=== PATIENT | male | born 1975 | race Caucasian/White ===

== ENCOUNTER 2022-12-25 14:05 | Outpatient (CLI) | payer BC, SELFPAY ==
--- NOTE | 2022-12-25 14:38 | XR_ITS ---
WS: [id number] XR lumbar spine 2-3V* [id number] REASON FOR EXAM: LUMBAR SPONDYLOLYSIS/POST OP CHECK FINDINGS: No comparison examination. Posterior decompression with pedicle screws L4-S1. Interbody fusion devices at L4-L5 and L5-S1. Lateral bony fusion masses L4-L5. The surgical appliances are intact and in proper position and alignment. No other significant finding. XR/XR lumbar spine 2-3V* [id number] IMPRESSION: Posterior fusion lumbar cervical spine as above.
== END 2022-12-25 14:06 | disposition home or self-care (01) ==
PROVIDERS: Visit Provider Neurological Surgery
DX: M47.816 Spondylosis without myelopathy or radiculopathy, lumbar region (principal); Z98.1 Arthrodesis status
CPT/HCPCS: 72100

== ENCOUNTER → 2023-01-11 11:21 | Outpatient (BNVA) | payer BC, SELFPAY | PROVIDERS: PCP Nurse Practitioner Family; Visit Provider Nurse Practitioner Family | DX: M51.16 Intervertebral disc disorders with radiculopathy, lumbar region (principal); R79.89 Other specified abnormal findings of blood chemistry; M54.9 Dorsalgia, unspecified; G89.29 Other chronic pain | CPT/HCPCS: 80053; 80061 ==

== ENCOUNTER 2023-04-03 09:16 | Outpatient (CLI) | payer BC, SELFPAY ==
--- NOTE | 2023-04-03 09:28 | XR_ITS ---
WS: [id number] Exam: XR lumbar spine 2-3V* [id number] Date/Time of Exam: 04/03/2023 9:28 AM Reason For Exam: Lumbar radiculopathy Comparison 12/25/2022. There is posterior fusion of the spine from L4-S1 with pedicle screws and posterior rods. Disc spacer s at L4-5 and L5-S1. The fusion remains in satisfactory alignment. Laminectomy at L4-5 and L5-S1. No sign of hardware failure. The remainder of the lumbar spine is unremarkable. IMPRESSION: 1. Stable fusion from L4-S1. No change or complication since previous exam.
== END 2023-04-03 09:17 | disposition home or self-care (01) ==
PROVIDERS: PCP Nurse Practitioner Family; Visit Provider Registered Nurse
DX: M54.16 Radiculopathy, lumbar region (principal); Z98.1 Arthrodesis status
CPT/HCPCS: 72100

== ENCOUNTER → 2023-09-27 13:36 | Outpatient (BNVA) | payer BC, SELFPAY | PROVIDERS: PCP Nurse Practitioner Family; Visit Provider Nurse Practitioner Family | DX: R79.89 Other specified abnormal findings of blood chemistry (principal); M51.16 Intervertebral disc disorders with radiculopathy, lumbar region; M54.9 Dorsalgia, unspecified; G89.29 Other chronic pain; Z12.11 Encounter for screening for malignant neoplasm of colon; Z12.2 Encounter for screening for malignant neoplasm of respiratory organs; F17.200 Nicotine dependence, unspecified, uncomplicated; H92.03 Otalgia, bilateral; Z12.5 Encounter for screening for malignant neoplasm of prostate | CPT/HCPCS: 80053; 80061; 84402; 84403; 85025; G0103 ==

== ENCOUNTER 2023-10-31 13:00 | Outpatient (CLI) | payer BC, SELFPAY ==
--- NOTE | 2023-10-31 13:00 | CT_ITS ---
WS: [id number] LDCT LUNG CANCER SCREENING TECHNIQUE: Noncontrast CT of the chest with coronal and sagittal reformatted images. CLINICAL INFORMATION: screening COMPARISON: None. DLP: 114.17 mGy.cm DIvol: Mean CTDIvol: 2.40 (mGy) All CT scans at [facility] use at least one of these dose optimization techniques: automat ed exposure control; mA and/or kV adjustment per patient size (includes targeted exams where dose is matched to clinical indication); or iterative reconstruction. FINDINGS: Normal caliber thoracic aorta. No mediastinal or hilar lymphadenopathy. Calcified LEFT hilar lymph no teto. No axillary lymphadenopathy. Adrenal glands are normal. Normal GE junction. Lobulated upper pole LEFT kidney is indeterminate. Rec ommend further evaluation with contrast-enhanced CT abdomen pelvis and/or ultrasound. Additional smal l increased attenuation renal cortical lesion likely hemorrhagic or proteinaceous cyst measuring 10 m m. Mild thoracic curve. No suspicious pulmonary parenchymal abnormalities. CT/CT lung screening [id number] IMPRESSION: Recommend further evaluation of the LEFT kidney with ultrasound or contrast-enhanced CT abdomen pelvis. Lobulation upper pole LEFT kidney is indet erminate and incompletely visualized. Renal mass not excluded. LUNG-RADS: 1S-Negative with Significant Findings FOLLOW UP: 12 Month: Continue annual screening with LDCT
== END 2023-10-31 13:02 | disposition home or self-care (01) ==
PROVIDERS: PCP Nurse Practitioner Family; Visit Provider Nurse Practitioner Family
DX: Z12.2 Encounter for screening for malignant neoplasm of respiratory organs (principal); F17.200 Nicotine dependence, unspecified, uncomplicated; I89.8 Other specified noninfective disorders of lymphatic vessels and lymph nodes; N28.89 Other specified disorders of kidney and ureter
CPT/HCPCS: 71271

== ENCOUNTER 2023-12-05 12:30 | Outpatient (CLI) | payer BC, SELFPAY ==
[2023-12-05] MEDS: iohexol 350 mg/mL 500 mL Btl (per mL) PO (12:28)
--- NOTE | 2023-12-05 12:30 | CT_ITS ---
WS: [id number] CT ABDOMEN AND PELVIS WITH CONTRAST HISTORY: Indeterminate mass seen upper pole LEFT kidney on prior lung screening. TECHNIQUE: Imaging performed of the abdomen and pelvis with IV contrast. Multiphase phase imaging of the abdomen. Coronal and sagittal reformats are submitted. All CT scans at [facility] use at least one of these dose optimization techniques: automated exposure control; mA and/or kV adjustment per patient size (includes targeted exams where dose is matched to clinical indication); or iterative reconstruction. IV CONTRAST: Omnipaque 350; 100 mL IV. Oral contrast: Yes. DLP: 2315.66 mGy.cm COMPARISON: 10/31/2023 Lower thorax: Lung bases are clear. Heart is normal size. No hiatal hernia. Liver/biliary system: Normal size liver. Indeterminate low-attenuation mass in the posterior medial R IGHT lobe of the liver measuring 11 x 9 mm. Hounsfield units are elevated on the postcontrast exam. N o precontrast imaging performed. There is an additional very small area of decreased attenuation in t he more inferior RIGHT lobe which may be hemangioma. No duct dilatation. Normal portal vein. Gallbladder: Prior cholecystectomy. Pancreas: Normal size pancreas and pancreatic duct. No adjacent inflammation. Spleen: Normal size spleen. No mass or infarct. Adrenal glands: Normal. Right kidney: Normal size with no obstruction. Too small to characterize hypodensity in the lower ina e is probably a small cortical cyst. No solid mass identified. Left kidney: Normal size kidney with no obstruction. Previously described possible mass involving the anterior upper pole described on recent CT corresponds to a normal prominent renal cortex. There is an indeterminant mass with slightly increased attenuation from the posterior upper pole LEFT kidney m easuring 11 x 7 mm which could represent a very early neoplasm. There are a few additional areas of s carring with mild perinephric stranding. Aorta: Normal. Lymphadenopathy: None. Free fluid: None. GI tract: Nondistended stomach. No small bowel obstruction. Normal appendix. No significant diverticu lar disease. No obstructing lesions. Abdominal wall: Unremarkable abdominal wall. No hernia. Pelvis: No free fluid or adenopathy within the pelvis. Bones: Posterior L4-S1 fusion with interbody spacers at L4-5 and L5-S1. CT/CT abdomen pelvis w con* [id number] IMPRESSION: 1. Previously described possible renal mass superior anterior pole LEFT kidney corresponds to normal cortex. 2. There is an indeterminate cortical mass from the posterior upper pole LEFT kidney measuring 11 x 7 mm. This may be a complex cyst versus very early renal cell neoplasm. This mass would not likely be evident by ultrasound. Recommend 3 to 4-month follow-up. Renal mass CT protocol or MRI renal mass protocol recomm ended. 3. There is an additional indeterminate mass in the RIGHT lobe of the liver me asuring 11 x 9 mm. Differential includes complex cyst, hemangioma or early neop lasm. This may be visualized by ultrasound. This can also be followed up in 3 t o 4 months at the time of the renal mass follow-up either by CT or MRI. 4. No GI tract obstruction. 5. No ascites or adenopathy.
[2023-12-05] MEDS: iohexol 350 mg/mL 500 mL Btl (per mL) IV (12:49)
== END 2023-12-05 12:31 | disposition home or self-care (01) ==
PROVIDERS: PCP Nurse Practitioner Family; Visit Provider Nurse Practitioner Family
DX: N28.89 Other specified disorders of kidney and ureter (principal); Q63.1 Lobulated, fused and horseshoe kidney; R16.0 Hepatomegaly, not elsewhere classified; Z90.49 Acquired absence of other specified parts of digestive tract
CPT/HCPCS: 74177; Q9967

== ENCOUNTER 2024-02-04 14:27 | Outpatient (CLI) | payer BC, SELFPAY ==
--- NOTE | 2024-02-04 14:30 | MRR_ITS ---
PROCEDURE INFORMATION: Exam: MR Abdomen Without Contrast Exam date and time: 02/04/2024 3:17 PM Age: 48 years old Clinical indication: Condition or disease; Other: Renal mass; Prior surgery; Surgery date: 6+ months; Surgery type: Gb, hernia, back, testicle; Patient HX: History of RT testicle liomyosarcoma; Additional info: Renal mass, liver mass TECHNIQUE: Imaging protocol: Magnetic resonance imaging of the abdomen without contrast. COMPARISON: CT abdomen pelvis w con* [id number] 12/05/2023 12:40 PM FINDINGS: Liver: There is a high T2 signal intensity cyst or nodule in the posterior right lobe of the liver measuring 13 x 12 mm demonstrating no detectable enhancement on arterial and portal venous phase images. Delayed phase images demonstrate questionable enhancement versus volume averaging with adjacent vessels. The liver parenchyma is otherwise normal. Gallbladder and biliary ducts: There is no intrahepatic or extrahepatic bile duct dilation. Gallbladder is absent. Pancreas: The pancreas is unremarkable. Spleen: The spleen is unremarkable. Adrenal glands: The adrenal glands are unremarkable. Kidneys: No hydronephrosis or stones. No ureteral dilation. There is a high T2 low T1 signal intensity nonenhancing 12 x 11 mm cyst exophytic from the posterior upper pole of the left kidney. Stomach and bowel: Visible portions of the small bowel and colon are unremarkable. Intraperitoneal space: No intraperitoneal free fluid. Vasculature: The abdominal aorta is unremarkable. The portal, splenic and superior mesenteric veins are patent. Lymph nodes: No visible lymphadenopathy. Bones/joints: Visible bones are unremarkable. Soft tissues: The visible portion of the abdominal wall is intact. MR/MR abdomen wo/w con* [id number] IMPRESSION: 1. 13 x 12 mm indeterminate liver nodule or cyst. Visible imaging features suggest a benign nodule, although enhancement on delayed phase imaging cannot be excluded. Consider follow-up imaging in 3-6 months. 2. 12 x 11 mm benign left renal cyst. COMMENTS: Consistent with the [employer]'s Incidental Findings Committee white paper (J Am Sascha Radiol 2018): Any incidental renal lesion less than 1 cm or classified as too small to characterize, or any incidental cystic renal lesion characterized as simple-appearing, is likely benign. No follow-up imaging is recommended for these lesions per consensus recommendations based on imaging criteria.
[2024-02-04] MEDS: gadobenate dimeglumine 20 mL vial 19 ML IV (15:44)
== END 2024-02-04 14:28 | disposition home or self-care (01) ==
LOC: RAD 14:28
PROVIDERS: PCP Nurse Practitioner Family; Visit Provider Nurse Practitioner Family
DX: K76.9 Liver disease, unspecified (principal); Q44.6 Cystic disease of liver; Z90.49 Acquired absence of other specified parts of digestive tract; Z98.890 Other specified postprocedural states
CPT/HCPCS: 74183